=== PATIENT | male | born 1970 | race African-American/Black ===

== ENCOUNTER 2018-02-15 11:38 | Emergency (ER) | payer OTHER ==
[2018-02-15 12:18] LABS: BASOPHILS % 0.6 (0.0-1.5); EOSINOPHILS % 2.7 % (0.0-6.8); MEAN CORPUSCULAR HEMOGLOBIN 21.4 pg (28.0-34.0); MEAN CORPUSCULAR VOLUME 72.2 fl (80.0-100.0); MONOCYTES % 4.6 % (0.0-11.0)
[2018-02-15] MEDS: 0.9 % SODIUM CHLORIDE 1,000 ML IV ONE (12:30)
[2018-02-15 12:34] LABS: eGFR (African) > 60; eGFR (Non-African) 58
[2018-02-15 12:41] LABS: CANNABINOIDS NON NEGATIVE ng/mL (< 50); METHYLENEDIOXYMETHAMPHETAMINE NEGATIVE ng/mL (<500)
[2018-02-15 12:41] LABS: APPEARANCE,URINE CLEAR (CLEAR); COLOR,URINE YELLOW (YELLOW); OCCULT BLOOD,URINE NEGATIVE (NEGATIVE); PH URINE 6.5 (5.0 - 8.0); UROBILINOGEN URINE 0.2 Eu (0.2-1.0)
[2018-02-15] MEDS: MECLIZINE HCL 25 MG TABLET PO ONE (13:29)
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
[2018-02-15 14:22] VITALS: BP 138/74
== END 2018-02-15 14:20 | disposition home or self-care (01) ==
LOC: ED 11:38
DX: R42 Dizziness and giddiness (principal); T88.7XXA Unspecified adverse effect of drug or medicament, initial encounter
CPT/HCPCS: 80053; 80377; 81002; 85025; J7030; 96360; 99284; G0481; S1016

== ENCOUNTER 2018-03-01 14:11 | Emergency (ER) | payer OTHER ==
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
== END 2018-03-01 14:37 | disposition left against medical advice (07) ==
LOC: ED 14:11
DX: R60.0 Localized edema (principal); Z53.21 Procedure and treatment not carried out due to patient leaving prior to being seen by health care provider
CPT/HCPCS: 99282

== ENCOUNTER 2018-03-29 12:04 | Outpatient (CLI) | payer OTHER ==
--- NOTE | 2018-03-29 12:40 | Diagnostic Imaging Report ---
ANATOLIY EWING [facility] [address] [facility] [address] [place] [address]. [id number] Report Submission Date: Mar 29, 2018 12:35:09 PM CDT Patient Study Name: GUSTAVO JAMIL Date: Mar 29, 2018 12:06:14 PM CDT Modality Type: DX Gender: M Description: LOWER EXTREMITY : 72 Institution: [facility] Physician: ANATOLIY EWING Examination: Plain film left knee History: LT ANTERIOR KNEE PAIN POST FALL 2 WEEKS AGO (Hx) Findings: 3 views of the left knee demonstrates generalized osteopenia. Articular degenerative changes. No fracture. No dislocation. Suprapatellar joint effusion. No soft tissue irregularity. Impression: Articular degenerative changes. No acute appearing osseous abnormality. Joint effusion. Electronically signed on Mar 29, 2018 12:35:09 PM CDT by: Harpreet NI
== END 2018-03-29 12:06 ==
LOC: LAB 12:04
PROVIDERS: ATTEND Family Medicine
DX: M25.562 Pain in left knee (principal)
CPT/HCPCS: 73562

== ENCOUNTER 2018-11-25 16:20 | Emergency (ER) | payer OTHER ==
[2018-11-25 17:32] LABS: BASOPHILS % 0.8 (0.0-1.5); EOSINOPHILS % 1.9 % (0.0-6.8); MEAN CORPUSCULAR HEMOGLOBIN 21.7 pg (28.0-34.0); MONOCYTES % 4.2 % (0.0-11.0); NEUTROPHILS # 3.3 # k/uL (1.4-7.7)
--- NOTE | 2018-11-25 17:34 | ED Physician Documentation ---
Abdominal Pain - HISTORIAN Historian: patient - HPI Stated Complaint: abdominal pain Chief Complaint: Abdominal Pain Onset: days ago (4) Duration: waxing, waning Timing: worse Context: denies: out of country travel, bad food, recent trauma Severity: moderate Quality: pain Associated Symptoms: chills, nausea, diarrhea, loss of appetite. denies: fever, vomiting Exacerbated by: movements Relieved by: nothing Further Comments: yes (48 year old male patient sent over from Dr Palmer's office with a 4 day history of abdominal pain. Patient denies fever, chills, states he has been able to eat and drink. Reports pain is worse across lower abdomen with movement and bending.) - ROS CONST: no problems GI/: constipation, other (alternating with diarrhea) CVS/RESP: none EYES/ENT: none MS/SKIN/LYMPH: none NEURO/PSYCH: none - SOCIAL HX Smoking History: non-smoker - FAMILY HX Family History: denies: none - PAST HX Past History: other (HLD, hypothyroidism, depression, seizures) Other History: diabetes Type 2 Home Medications: Ambulatory Orders Medication Instructions Recorded Allopurinol [Zyloprim] 100 mg PO DAILY 02/15/18 Amitriptyline HCl [Elavil] 25 mg PO HS 02/15/18 Carbamazepine [Carbamazepine ER] 400 mg PO TID 02/15/18 Colchicine [Mitigare] 0.6 mg PO DAILY 02/15/18 DULoxetine HCL [Cymbalta] 30 mg PO DAILY 02/15/18 Gabapentin [Neurontin] 600 mg PO TID 02/15/18 Hydrochlorothiazide [Hydrodiuril] 25 mg PO DAILY 02/15/18 Levetiracetam [Keppra] 1,000 mg PO BID 02/15/18 Lisinopril [Zestril] 10 mg PO DAILY 02/15/18 Metformin HCl [Glucophage] [place] [id number] 02/15/18 Omeprazole 40 mg PO 0700 02/15/18 Dicyclomine HCl [Bentyl] 20 mg PO Q6 #21 tablet 11/25/18 Allergies/Adverse Reactions: Allergies Allergy/AdvReac Type Severity Reaction Status Date / Time No Known Allergies Allergy Verified 11/25/18 17:29 - VITAL SIGNS Vital Signs: Vital Signs Temp Pulse Resp BP Pulse Ox 98.2 F 73 16 143/97 99 11/25/18 16:25 11/25/18 16:25 11/25/18 16:25 11/25/18 16:25 11/25/18 16:25 - REVIEWED ASSESSMENTS Nursing Assessment Reviewed: Yes Vitals Reviewed: Yes Progress - Progress Progress: Reviewed discharge instructions with patient. Reviewed lab and CT results with patient, questions answered. Patient instructed to follow up with Dr Palmer next week. ED Results Lab/Radiology - Lab Results Lab Results: Lab Results 11/25/18 11/25/18 16:49 16:49 WBC 8.00 K/ul K/ul (4.00-12.00) RBC 7.01 M/ul H M/ul (3.90-5.20) Hgb 15.2 g/dL g/dL (12.0-18.0) Hct 48.5 % % (37.0-53.0) MCV 69.0 fl L fl (80.0-100.0) MCH 21.7 pg L pg (28.0-34.0) MCHC 31.3 g/dL g/dL (30.0-36.0) RDW 17.0 % H % (11.3-14.3) Plt Count 262 K/mm3 K/mm3 (130-400) Neut % (Auto) 41.1 % % (39.0-79.0) Lymph % (Auto) 52.0 % H % (16.0-50.0) [place] % (Auto) 4.2 % % (0.0-11.0) Eos % (Auto) 1.9 % % (0.0-6.8) Baso % (Auto) 0.8 (0.0-1.5) Neut # (Auto) 3.3 # k/uL # k/uL (1.4-7.7) Lymph # (Auto) 4.1 # k/uL H # k/uL (0.6-4.0) [place] # (Auto) 0.3 # k/uL # k/uL (0.0-0.9) Eos # (Auto) 0.2 # k/uL # k/uL (0.0-0.6) Baso # (Auto) 0.1 # k/uL # k/uL (0.0-0.5) Sodium 146 mmol/L H mmol/L (136-145) Potassium 3.7 mmol/L mmol/L (3.5-5.1) Chloride 99 mmol/L mmol/L (98-107) Carbon Dioxide 31 mmol/L H mmol/L (22-30) BUN 11 mg/dL mg/dL (9-20) Creatinine 1.72 mg/dL H mg/dL (0.66-1.25) Estimated Creat Clear 78 Est GFR ( Amer) 55 L (60 - ) Est GFR (Non-Af Amer) 46 L (60 - ) Glucose 97 mg/dL mg/dL (74-106) Calcium 9.8 mg/dL mg/dL (8.4-10.2) Total Bilirubin 0.8 mg/dL mg/dL (0.2-1.3) AST 37 U/L U/L (15-46) ALT 35 U/L U/L (13-69) Alkaline Phosphatase 64 U/L U/L (38-126) Total Protein 8.3 g/dL H g/dL (6.3-8.2) Albumin 5.0 g/dL g/dL (3.5-5.0) Lipase 262 U/L U/L (23-300) - Radiology Radiology Impressions: FINDINGS: The aorta is normal in course and caliber. The visible lung bases are clear. The heart size is normal without pericardial effusion. The liver appears normal. The gallbladder is normal without evidence of wall thickening, pericholecystic fluid, or gallstones. The intrahepatic and extrahepatic bile ducts are nondilated. The spleen, pancreas, and adrenal glands appear normal. The kidneys kidneys are normal in size and configuration. There is no evidence of renal calculus or hydronephrosis. The distal esophagus and stomach appear normal. The small bowel and colon are normal in caliber without evidence of wall thickening or obstruction. The appendix appears normal without appendicolith or surrounding inflammatory changes. No free air or free fluid is identified within the abdomen. There is no abdominal lymphadenopathy. The urinary bladder is nondistended and appears normal. The uterus is small or absent. No free fluid is seen within the pelvis. Bone windows demonstrate no suspicious lytic or blastic lesions. The visible osseous structures are intact. IMPRESSION: No acute process identified in the abdomen or pelvis. Electronically signed on Nov 25, 2018 6:39:51 PM DRY HEAT CABINET ATTENDANT by: Dillon Sterling [id number] Radiology consulted regarding report of "The uterus is small or absent". Attempting to contact Dr Sterling. - Orders Orders: ED Orders Category Date Time Status Place IV Lock 1T Care 11/25/18 16:[address] ABD & PELVIS W/O CON Stat Exams 11/25/18 Taken CBC/PLATELET/DIFF Stat Lab 11/25/18 16:49 Completed CMP Stat Lab 11/25/18 16:49 Completed LIPASE Stat Lab 11/25/18 16:49 Completed UA W/MICRO IF INDICATED Stat Lab 11/25/18 16:27 Ordered 0.9 % Sodium Chloride [Normal Saline] 1,000 ml Med 11/25/18 17:40 Discontinued IV NOW Abdominal Pain Physical Exam - Physical Exam General Appearance: mild distress EENT: eye inspection normal, SANDRA RESPIRATORY: no resp distress, chest non-tender, breath sounds normal CVS: reg rate & rhythm, heart sounds normal, equal pulses, no murmur, no gallop, PMI nml, no JVD, no friction rub, 24 ABDOMEN: soft, no organomegaly, no abdominal bruit, no distension, tenderness (generalized), increased BS. 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 Choose more whole grain breads, cereals and rice. Select more raw fruits and vegetables -- eat the peel, if appropriate. Drink six to eight glasses of water each day. Limit highly refined and processed foods. Over the counter Laxative as needed Gas-ex, simethicone, or beano as needed per package directions for gas pain Return to the emergency department or call your doctor, if you are having severe abdominal pain, fever >101.0, or if there is blood in the vomit or diarrhea, or you cannot keep down liquids or solid food. Condition: Stable Disposition: 01 HOME, SELF-CARE Decision to Admit: NO Decision Time: 18:45
[2018-11-25] MEDS ORDERED: 0.9 % SODIUM CHLORIDE 1,000 ML IV ONE (17:40)
[2018-11-25 19:04] VITALS: BP 130/77
[2018-11-25 21:11] LABS: APPEARANCE,URINE CLEAR (CLEAR); COLOR,URINE AMBER (YELLOW); OCCULT BLOOD,URINE NEGATIVE (NEGATIVE)
--- NOTE | 2018-11-26 02:05 | Diagnostic Imaging Report ---
NICOLE TODD (SOIL TECHNICIAN) - ER [facility] [address] [facility] [address] [place], [place]. 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 PT STATES NO HX OF ABDOMINAL SURGERIES TECHNIQUE: CT of the abdomen and pelvis was performed without contrast according to standard protocol. COMPARISON: None FINDINGS: The aorta is normal in course and caliber. The visible lung bases are clear. The heart size is normal without pericardial effusion. The liver appears normal. The gallbladder is normal without evidence of wall thickening, pericholecystic fluid, or gallstones. The intrahepatic and extrahepatic bile ducts are nondilated. The spleen, pancreas, and adrenal glands appear normal. The kidneys kidneys are normal in size and configuration. There is no evidence of renal calculus or hydronephrosis. The distal esophagus and stomach appear normal. The small bowel and colon are normal in caliber without evidence of wall thickening or obstruction. The appendix appears normal without appendicolith or surrounding inflammatory changes. No free air or free fluid is identified within the abdomen. There is no abdominal lymphadenopathy. The urinary bladder is nondistended and appears normal. The uterus is small or absent. No free fluid is seen within the pelvis. Bone windows demonstrate no suspicious lytic or blastic lesions. The visible osseous structures are intact. IMPRESSION: No acute process identified in the abdomen or pelvis. Electronically signed on Nov 25, 2018 6:39:51 PM ELECTRONIC NEWS GATHERING EDITOR by: Dillon Sterling Note that the study was ordered as with contrast. However, no intravenous contrast is identified on the images. Also the sentence that states that the uterus is small or absent should read that the prostate appears normal. Addendum electronically signed by Dillon Sterling on November 25, 2018 6:48:57 PM ELECTRONIC NEWS GATHERING EDITOR MTDD
== END 2018-11-25 19:02 | disposition home or self-care (01) ==
LOC: ED 16:20
DX: R10.84 Generalized abdominal pain (principal)
CPT/HCPCS: 36415; 74176; 80053; 81002; 83690; 85025; 99283; 99284; J7030; S1016

== ENCOUNTER 2018-12-04 06:28 | Emergency (ER) | payer OTHER ==
[2018-12-04 06:59] VITALS: BP 126/96
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
== END 2018-12-04 07:15 | disposition home or self-care (01) ==
LOC: ED 06:28
DX: J01.90 Acute sinusitis, unspecified (principal); Z72.0 Tobacco use
CPT/HCPCS: 99281; 99282

== ENCOUNTER 2018-12-22 11:00 | Emergency (ER) | payer OTHER ==
--- NOTE | 2018-12-22 11:36 | ED Physician Documentation ---
Upper Respiratory Symptoms - HISTORIAN Historian: patient - HPI Stated Complaint: cough,congestion Chief Complaint: Cough/ Upper Respiratory Additional Information: Patient presents with a 3 week history of nasal congestion, cough, sinus pressure. He states he was given Z-jolly about 2 weeks ago for the symptoms which seemed to help temporarily, however, now his symptoms are worse. He denies fever, chills or night sweats. He also complains of left plantar foot pain. He reports he has a plantar wart there. Onset: days ago () Duration: intermittent episodes Context: denies: recent foreign travel Severity: mild Associated Symptoms: runny nose, sinus pain. denies: fever, chills Worsened by Deep Breath: No Further Comments: no - ROS CONST/EYES: denies: weakness CVS/RESP: denies: chest pain, shortness of breath LYMPH: denies: rash, swollen glands GI/: none. 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) Allergies/Adverse Reactions: Allergies Allergy/AdvReac Type Severity Reaction Status Date / Time No Known Allergies Allergy Verified 12/22/18 11:19 Home Medications: Ambulatory Orders Medication Instructions Recorded Allopurinol [Zyloprim] 100 mg PO DAILY 02/15/18 Amitriptyline HCl [Elavil] 25 mg PO HS 02/15/18 Carbamazepine [Carbamazepine ER] 400 mg PO TID 02/15/18 Colchicine [Mitigare] 0.6 mg PO DAILY 02/15/18 DULoxetine HCL [Cymbalta] 30 mg PO DAILY 02/15/18 Gabapentin [Neurontin] 600 mg PO TID 02/15/18 Hydrochlorothiazide [Hydrodiuril] 25 mg PO DAILY 02/15/18 Levetiracetam [Keppra] 1,000 mg PO BID 02/15/18 Lisinopril [Zestril] 10 mg PO DAILY 02/15/18 Metformin HCl [Glucophage] 500 [place] [address] 02/15/18 Omeprazole 40 mg PO 0700 02/15/18 Dicyclomine HCl [Bentyl] 20 mg PO Q6 #21 tablet 11/25/18 Levofloxacin [Levaquin] 500 mg PO DAILY #5 tablet 12/22/18 amLODIPine BESYLATE [Norvasc] 10 mg PO DAILY 12/22/18 predniSONE [Deltasone] 20 mg PO DIRECTED #9 tablet 12/22/18 - SOCIAL HX Smoking History: non-smoker Alcohol Use: none Drug Use: none - FAMILY HX Family History: none - VITAL SIGNS Vital Signs: Vital Signs Temp Pulse Resp BP Pulse Ox 98.3 F 64 24 136/91 100 12/22/18 11:00 12/22/18 11:00 12/22/18 11:00 12/22/18 11:00 12/22/18 11:00 - REVIEWED ASSESSMENTS Nursing Assessment Reviewed: Yes Vitals Reviewed: Yes Upper Respiratory Symptoms - EXAM General Appearance: no acute distress, alert EENT: pain over sinuses, maxillary, purulent nasal drainage Neck: supple Respiratory: no resp. distress, breath sounds nml Abdomen: non-tender, nml bowel sounds CVS: reg rate & rhythm, heart sounds normal Skin: color nml, no rash, warm,dry Extremities: non-tender, no edema Neuro/Psych: oriented x3, neuro intact, mood/affect nml Discharge Clincal Impression: Plantar wart of right foot Acute maxillary sinusitis Qualifiers: Recurrence: non-recurrent Qualified Code(s): J01.00 - Acute maxillary sinusitis, unspecified Prescriptions: Levofloxacin [Levaquin] 500 mg PO DAILY #5 tablet predniSONE [Deltasone] 20 mg PO DIRECTED #9 tablet Referrals: Yung Palmer MD [Primary Care Provider] - 2 Days Condition: Stable Disposition: 01 HOME, SELF-CARE Decision to Admit: NO Date of Decison to Admit: 12/22/18 Decision Time: 11:54
[2018-12-22 11:56] VITALS: BP 173/98
== END 2018-12-22 11:54 | disposition home or self-care (01) ==
LOC: ED 11:00
DX: J01.00 Acute maxillary sinusitis, unspecified (principal); B07.0 Plantar wart
CPT/HCPCS: 99282; 99283

== ENCOUNTER 2019-02-11 12:03 | Emergency (ER) | payer OTHER ==
[2019-02-11] MEDS ORDERED: KETOROLAC TROMETHAMINE 30 MG/1ML VIAL IV ONE (12:37)
[2019-02-11] MEDS ORDERED: ONDANSETRON HCL/PF 4 MG/ 2ML VIAL IVP ONE (12:37)
[2019-02-11] MEDS ORDERED: diphenhydrAMINE HCL 50 MG/ML VIAL IVP ONE (12:39)
[2019-02-11] MEDS ORDERED: methylPREDNISolone SOD SUCC 125 MG/2 ML VIAL IVP ONE (12:39)
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
[2019-02-11 12:57] VITALS: BP 140/97
== END 2019-02-11 13:15 | disposition left against medical advice (07) ==
LOC: ED 12:03
DX: R51 Headache (principal)
CPT/HCPCS: 99281

== ENCOUNTER 2019-03-31 10:47 | Emergency (ER) | payer OTHER ==
[2019-03-31] MEDS ORDERED: HALOPERIDOL LACTATE 5 MG/ML VIAL IM ONE ×2 (10:50→10:56)
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
[2019-03-31 15:45] VITALS: BP 161/102
[2019-04-04 08:21] LABS: CANNABINOIDS NON NEGATIVE ng/mL (< 50); METHYLENEDIOXYMETHAMPHETAMINE NEGATIVE ng/mL (<500)
== END 2019-03-31 11:40 ==
LOC: ED 10:47
DX: Z02.89 Encounter for other administrative examinations (principal); R56.9 Unspecified convulsions; R45.1 Restlessness and agitation
CPT/HCPCS: 80377; 96372; 99283; 99284; J1630; G0481

== ENCOUNTER 2019-06-11 11:10 | Emergency (ER) | payer OTHER ==
--- NOTE | 2019-06-11 11:13 | ED Physician Documentation ---
General Adult - HISTORIAN Historian: patient - HPI Stated Complaint: right great toe pain "gout" Chief Complaint: Lower Extremity Problem Onset: days ago (2) Timing: still present, worse Severity: severe (07/07) Further Comments: yes (He states his right great toe has gout he has had gout in the toe before. He has the "worst pain ever and he needs some damn pain meds right now" . He states he has not taken his dose of meds for gout at this time today. He does not note any new injury. When asking pt if he can move his toe "Gout makes me not be able to move my toe do you know anything about gout or anything" .) - ROS CONST: no problems EYES/ENT: none CVS/RESP: none GI/: none - PAST HX Past History: other (gout - "I dont) Immunizations: UTD Allergies/Adverse Reactions: Allergies Allergy/AdvReac Type Severity Reaction Status Date / Time No Known Allergies Allergy Verified 06/11/19 11:40 Home Medications: Ambulatory Orders Medication Instructions Recorded Allopurinol [Zyloprim] 100 mg PO DAILY 02/15/18 Amitriptyline HCl [Elavil] 25 mg PO HS 02/15/18 Carbamazepine [Carbamazepine ER] 400 mg PO TID 02/15/18 Colchicine [Mitigare] 0.6 mg PO DAILY 02/15/18 DULoxetine HCL [Cymbalta] 30 mg PO DAILY 02/15/18 Gabapentin [Neurontin] 600 mg PO TID 02/15/18 Levetiracetam [Keppra] 1,000 mg PO BID 02/15/18 Lisinopril [Zestril] 10 mg PO DAILY 02/15/18 Omeprazole 40 mg PO 0700 02/15/18 hydroCHLOROthiazide [Hydrodiuril] 25 mg PO DAILY 02/15/18 metFORMIN HCl [Glucophage] [place] [address] 02/15/18 Dicyclomine HCl [Bentyl] 20 mg PO Q6 #21 tablet 11/25/18 amLODIPine BESYLATE [Norvasc] 10 mg PO DAILY 12/22/18 - SOCIAL HX Smoking History: cigarettes Alcohol Use: none Drug Use: none - FAMILY HX Family History: No - VITAL SIGNS Vital Signs: Vital Signs Temp Pulse Resp BP Pulse Ox 161/102 03/31/19 10:50 - REVIEWED ASSESSMENTS Nursing Assessment Reviewed: Yes Vitals Reviewed: Yes General Adult Physical Exam - PHYSICAL EXAM GENERAL APPEARANCE: angry : cursing and yelling EENT: eye inspection normal, no signs of dehydration NECK: normal inspection RESPIRATORY: no resp distress, chest non-tender, breath sounds normal CVS: reg rate & rhythm, heart sounds normal, equal pulses BACK: normal inspection SKIN: warm/dry, other (mild redness on lateral great right toe. cap refill + sensation + ROM he will not stand ) EXTREMITIES: non-tender NEURO: oriented X3 Discharge Clincal Impression: Foot pain, left Referrals: Yung Palmer MD [Primary Care Provider] - 2 Days Disposition: AGAINST MEDICAL ADVICE Decision to Admit: NO Date of Decison to Admit: 06/11/19 Decision Time: 11:55
[2019-06-11] MEDS ORDERED: KETOROLAC TROMETHAMINE 60 MG/2 ML VIAL IM ONE (11:46)
[2019-06-11 11:50] VITALS: BP 150/98
== END 2019-06-11 11:55 | disposition left against medical advice (07) ==
LOC: ED 11:10
DX: M79.672 Pain in left foot (principal)
CPT/HCPCS: 96372; 99282; 99284